=== PATIENT | female | born 1965 | race Two or more races ===

== ENCOUNTER 2025-05-18 09:44 | Outpatient (REF) | payer OTHER, SELFPAY ==
--- NOTE | 2025-05-18 09:51 | EMG_ITS ---
Chief complaint: At least 20 years of gradual progressive lower extremity weakness. Ten years ago, she started using a cane or a walker for ambulation. Now she is dependent for transfers and bed mobility, ambulates with lower extremity weakness, with walker. She denies lower back pain. Admits to some right hip pain. She denies numbness on lower extremities. Denies neck pain. Denies symptoms on upper extremities. She is not aware of family history on paternal side. She does have a maternal cousin who uses crutches for ambulation since childhood. No specific diagnosis has been given so far. Recent MRI lumbar spine did not report any significant disc herniation, spinal stenosis or nerve compression. EMG 2014 was normal, done at [facility]. On exam today, she has weakness on both lower extremities, 3/5 only. Hyperreflexia on both knees and ankles. No clonus. Negative Babinski. Increased tone on both legs. No hyperreflexia on upper extremities. No increased tone in upper extremities. Negative Conley's sign. 5/5 in upper extremities. No atrophy. No fasciculations seen. Reason for referral: Evaluate for neuropathy Referred by: Juan Carlos HICKS Procedure done: Bilateral lower extremity NCS/EMG order received Precautions and/or limitations: None The limb temperature was monitored continuously and remained between 32-36 degrees C during the performance of the NCS. Nerve Conduction Studies Anti Sensory Summary Table ?Stim Site NR Onset (ms) Norm Onset (ms) Peak (ms) Norm Peak (ms) O-P Amp (?V) Norm O-P Amp Site1 Site2 Delta-0 (ms) Dist (cm) Lennox (m/s) Norm Lennox (m/s) Left Sural Anti Sensory (Lat Mall) Calf ? 2.8 3.4 <4.0 16.9 >5.0 Calf Lat Mall 2.8 14.0 50 Right Sural Anti Sensory (Lat Mall) Calf ? 2.3 3.3 <4.0 19.2 >5.0 Calf Lat Mall 2.3 14.0 61 Motor Summary Table ?Stim Site NR Onset (ms) Norm Onset (ms) O-P Amp (mV) Norm O-P Amp iAmp (mV) Amp (1st) (%) Site1 Site2 Delta-0 (ms) Dist (cm) Lennox (m/s) Norm Lennox (m/s) Left Peroneal Motor (Ext Dig Brev) Ankle ? 3.8 <4.0 4.9 >2.5 5.8 100.0 Ankle Ext Dig Brev 3.8 0.0 B Fib ? 9.8 4.5 5.3 91.8 B Fib Ankle 6.0 32.5 54 >40 Poplt ? 10.6 4.5 5.3 91.8 Poplt B Fib 0.8 5.0 63 >40 Right Peroneal Motor (Ext Dig Brev) Ankle NR <4.0 >2.5 Ankle Ext Dig Brev 0.0 B Fib NR B Fib Ankle 0.0 >40 Poplt ? 10.6 3.7 4.1 Poplt B Fib 0.0 >40 Right Peroneal TA Motor (Tib Ant) Fib Head ? 4.2 <4.2 4.5 5.7 100.0 Fib Head Tib Ant 4.2 0.0 Poplit ? 5.4 <5.7 4.8 5.9 106.7 Poplit Fib Head 1.2 8.0 67 >40.5 Left Tibial Motor (Abd Castro Brev) Ankle ? 4.0 <5 8.0 >2.5 10.7 100.0 Ankle Abd Castro Brev 4.0 0.0 Knee ? 11.1 14.2 19.0 177.5 Knee Ankle 7.1 34.0 48 >40 Right Tibial Motor (Abd Castro Brev) Ankle ? 3.5 <5 8.9 >2.5 12.3 100.0 Ankle Abd Castro Brev 3.5 0.0 Knee ? 10.7 12.4 16.4 139.3 Knee Ankle 7.2 38.0 53 >40 EMG ?Side Muscle Nerve Root Ins Act Fibs Psw Amp Dur Poly Recrt Int Pat Comment Right AbdHallucis MedPlantar S1-2 Incr 2+ 2+ Nml Nml 0 Nml Complete Right AntTibialis Dp Br Peron L4-5 Nml Nml Nml Nml Nml 0 Nml Complete CAN NOT ACTIVATE Right PostTibialis Tibial L5, S1 Nml Nml Nml Nml Nml 0 Nml Complete Right MedGastroc Tibial S1-2 Incr 2+ 2+ Nml Nml 0 Nml Complete Right VastusMed Femoral L2-4 Nml Nml Nml Nml Nml 0 Nml Complete Left AbdHallucis MedPlantar S1-2 Incr 1+ 1+ Nml Nml 0 Nml Complete Left AntTibialis Dp Br Peron L4-5 Incr 1+ 1+ Nml Nml 0 Nml Complete CAN NOT ACTIVATE Left PostTibialis Tibial L5, S1 Nml Nml Nml Nml Nml 0 Nml Complete Left MedGastroc Tibial S1-2 Incr 1+ 1+ Nml Nml 0 Nml Complete Left VastusMed Femoral L2-4 Nml Nml Nml Nml Nml 0 Nml Complete Paraspinal EMG ?Side Muscle Nerve Root Ins Act Fibs Psw Comment Right Lumbar Upper Rami Nml Nml Nml Right Lumbar Mid Rami Nml Nml Nml Right Lumbar Lower Rami Nml Nml Nml Left Lumbar Upper Rami Nml Nml Nml Left Lumbar Mid Rami Incr 1+ 1+ Left Lumbar Lower Rami Nml Nml Nml FINDINGS: Right peroneal nerve, when recording at EDB muscle, showed absent distal responses. Right peroneal nerve, when recording at TA muscle, did not show conduction block across the fibula. All other nerves tested were within normal. No significant demyelination seen. Concentric needle EMG was performed in selected muscles of the bilateral lower extremity and lumbar paraspinals. Study revealed signs of electric abnormalities as shown in the table above. Right medial gastrocnemius and AH showed increased insertional activity, +2 PSWs and fibrillations. Left medial gastrocnemius, tibialis anterior and AH showed increased insertional activity, PSWs and fibrillations. Left mid lumbar paraspinals showed increased insertional activity, PSWs and fibrillations. No myopathic looking units. No fasciculations seen. IMPRESSION: 1. This is an abnormal study. 2. Electrodiagnostic findings suggestive of a disorder of motor neurons, their axons, or both, affecting the lower extremities. CLINICAL COMMENT: Patient is presenting with chronic, slowly progressive, lower extremity weakness, exhibiting mostly upper motor neuron signs (weakness, hyperreflexia, spasticity). No lower motor neuron signs seen such as atrophy. Electrodiagnostic findings as above show primarily an axonal and motor deficit. Does not show demyelinating process or conduction block. Sensory nerves were normal. Differential diagnosis would include, but not limited to primary lateral sclerosis. PLS is a rare disorder marked by progressive and selective UMN involvement with sparing of the LMNs, characterized by spasticity, weakness, increased reflexes, progressive paraplegia or quadriplegia. PLS has overall better prognosis than ALS. I would recommend sending patient back for further NCS/EMG of upper extremities, thoracic and bulbar muscles. We can call patient back to schedule. Consider referral to neurology. Rule out other PLS mimics. Another differential diagnosis is cervical or lumbar spinal stenosis. Recent lumbar MRI did not report any significant lumbar spinal stenosis. Would defer to referring coordinate measuring machine operator whether cervical MRI/imaging is to be done. Thank you for your kind referral. Sandee Laughlin MD, BONITA Board Certified, [place] [employer] and [employer] (ABPMR) Board Certified, [place] [employer] Electro[employer] (ABEM) CODIN 92021 x 2 MTDD
--- OUTSIDE RECORDS SUMMARY | 2025-05-18 10:11 | XMS_ITS | Clinical Summary ---
Author Organization [facility] Address [address] [place] [address] Phone Care Team Providers Care Flight Teacher Name Role Phone Hussain Ireland MD Primary Care Pr ovider Allergies No known active allergies Medications multivit,calc,mins /iron/folic (ONE-A-DAY WOMENS FORMULA ORAL) Active diclofenac (VOLTAREN) 1 % topical gel Apply 2 g topically 2 (two) times a day if needed (pain). 100 g 09/08/20 24 Active loperamide (Imodium A-D) 2 mg tablet Take 1 tablet (2 mg total) by mouth 3 (three) times a day if needed for diarrhea. 30 tablet 2 09/08/20 24 Active atorvastatin (LIPITOR) 20 mg tabletIndications: Mixed hyperlipidemia Take 1 tablet (20 mg total) by mouth at bedtime. 90 tablet 1 01/14/20 25 Active omeprazole (PriLOSEC) [address] capsuleIndications :Gastroesophageal reflux disease without esophagitis Take 1 capsule (20 mg total) by mouth 1 (one) time each day. Do not crush or chew. 90 each 1 03/09/20 25 025 Active gabapentin (NEURONTIN) 300 mg capsuleIndications :Chronic midline low back pain with right-sided sciatica,Chronic right hip pain Take 1 capsule (300 mg total) by mouth at bedtime. 90 each 1 03/09/20 25 025 Active cyclobenzaprine (FLEXERIL) 5 mg tabletIndications: Chronic midline low back pain with right-sided sciatica,Chronic right hip pain Take 1 tablet (5 mg total) by mouth at bedtime as needed for muscle spasms. 30 tablet 05/06/20 25 025 Active cyclobenzaprine (FLEXERIL) 5 mg tabletIndications: Chronic midline low back pain with right-sided sciatica,Chronic right hip pain Take 1 tablet (5 mg total) by mouth at bedtime as needed for muscle spasms. 30 tablet 03/09/20 25 025 Discontin ued(Reord er) Active Problems Problem Noted Date Diagnosed Date Osteoarthritis of spine with radiculopathy, lumb ar region 03/10/2025 Anterolisthesis of lumbosacral spine 03/10/2025 Gastroesophageal reflux disease without esophagi tis 03/09/2025 Assessment & Plan (03/09/2025 10:14 AM EDT): Start omeprazole daily. She will stop medication 2 weeks prior to H. pylori test of cure Orders: omeprazole (PriLOSEC) [address] capsule; Take 1 capsule (20 mg total) by mouth 1 (one) time each day. Do not crush or chew. Helicobacter pylori gastritis 01/14/2025 Assessment & Plan (03/09/2025 10:14 AM EDT): Status post treatment with amoxicillin/clindamycin/omeprazole. Still with acid reflux symptoms. She will return for H. pylori test of cure in April. Tendonitis of long head of biceps brachii of rig ht shoulder 08/20/2024 Assessment & Plan (08/20/2024 10:06 AM EST): Referred to Dr. Moreno for further evaluation Mixed hyperlipidemia 06/29/2024 Overview (09/02/2024): Calculated ASCVD risk is 3.3% Assessment & Plan (03/09/2025 10:14 AM EDT): Continue atorvastatin 20 mg nightly Assessment & Plan (01/13/2025 1:11 PM EDT): Advised to use atorvastatin 20 mg nightly and to use the medication every single night as prescribed. She will return for repeat fasting labs in 3 months Orders: Lipid panel with reflex to direct LDL; Future Comprehensive metabolic panel; Future atorvastatin (LIPITOR) 20 mg tablet; Take 1 tablet (20 mg total) by mouth at bedtime. Overweight (BMI 25.0-29.9) 06/29/2024 Primary osteoarthritis of right shoulder 024 Assessment & Plan (01/13/2025 1:11 PM EDT): See HPI Will trial ibuprofen 800 mg as needed. Advised to use the medication with food. Follow-up with sports medicine Orders: Ambulatory referral to Sports Medicine; Future ibuprofen (ADVIL,MOTRIN) 800 mg tablet; Take 1 tablet (800 mg total) by mouth 1 (one) time each day if needed for moderate pain (take with food). Leg length discrepancy 05/13/2018 Multiple thyroid nodules 12/16/2016 Overview (07/27/2024): 07/16/24 THYROID, ISTHMUS-FINE NEEDLE ASPIRATE (DIRECT SMEARS, THINPREP): - BENIGN (BETHESDA CATEGORY II). - BENIGN-APPEARING FOLLICULAR CELLS, COLLOID, AND OCCASIONAL ONCOCYTIC CELLS, CONSISTENT WITH A BENIGN FOLLICULAR NODULE. Gait instability 08/21/2015 Overview (07/27/2024): Being evaluated by [facility] neurology Encounters Date Type Department Care Team Description 04/12/2025 5:51 PM EDT - 04/12/2025 11:59 PM EDT Hospital Encounter Radiology Department - [address] [phone] Low back pain, unspecified; Foot drop, left foot; Foot drop, right foot; Muscular dystrophy, unspecified (CMS/HCC V24, CMS/HCC V28) Discharge Disposition: Home or Self Care 03/11/2025 10:30 AM EDT Office Visit [facility] [address] [place] [address] [address] [place] [address] Yue Moreno MD Chronic right shoulder pain (Primary Dx) 03/09/2025 10:20 AM EDT - 03/09/2025 11:59 PM EDT Hospital Encounter [facility] [address] [place], [place] [phone] Chronic midline low back pain with right-sided sciatica Discharge Disposition: Home or Self Care 03/09/2025 9:45 AM EDT Office Visit Adult Medicine [facility] [address] [place], [place] [phone] Hussain Ireland MD Mixed hyperlipidemia (Primary Dx); Helicobacter pylori gastritis; Gastroesophageal reflux disease without esophagitis; Cervical cancer screening; Chronic midline low back pain with right-sided sciatica; Chronic right hip pain from Last 3 Months Immunizations Name Administration Dates Next Due Influenza Quadravalent, MDCK , 0.5ml, preservative free (Flucelvax) 6mo and older 07/03/2021,08/25/2018 Influenza Quadravalent, MDCK , 0.5ml, with preservative (Flucelvax) 6mo and older 06/20/2020,08/23/2019,07/06/2017 Influenza Quadrivalent, 0.5m l, preservative free (Fluarix; FluLaval; Fluzone) ages 6mo and older (Afluria) 3yo and older 06/20/2020 Influenza Quadrivalent, with preservative (Fluzone; Afluria) 6mo and older 08/23/2019 Influenza trivalent, 0.5mL ( Fluad) 65yo and older 07/28/2016,07/05/2015,07/01/2013,2010,08/07/2010 Influenza trivalent, 0.5mL, preservative free (Fluarix; FluLaval; Fluzone) ages 6mo and older (Afluria) 3 years and older 06/29/2024,07/08/2008 Influenza trivalent, with preservative (Fluzone; Afluria) 6mo and older 06/29/2024,07/28/2016,07/05/2015,2012,08/14/2011,08/07/2010,07/08/2008 Pfizer SARS-CoV-2 COVID-19, mRNA, LNP-S, preservative free 02/24/2021,02/03/2021 Pneumococcal conjugate 20 va lent (Prevnar 20, PCV 20) 2mo and older 01/13/2025 Tdap Tetanus diptheria acell ular pertussis (Boostrix; Adacel) 7yo and older 06/20/2020,05/07/2010 Zoster recombinant (Shingrix ) 19yo and older 06/20/2020 Surgical History Surgery Date Site/Laterality Comments TUBAL LIGATION 09/09/2011 PROCEDURE: HISTORICAL TUBAL LIGATION; COMMENT: laparoscopic fallope rings COLONOSCOPY december 2016 PROCEDURE: HISTORICAL COLONOSCOPY; COMMENT: polyp Medical History Medical History Date Comments Multiple thyroid nodules 12/16/2016 DX:Mult iple thyroid nodules Leg length discrepancy 05/13/2018 DX:Leg le ngth discrepancy Gait instability 08/21/2015 DX:Gait instabi lity; COMMENT: Being evaluated by [facility] neurology Family History Medical History Relation Name Comments Other: cancer other Aunt brain Other cancer Maternal Grandmother unknown type Depression Mother Diabetes Mother Other: Ca Ovary Other negative his tory Breast cancer Neg Hx Colon cancer Neg Hx Relation Name Status Comments Aunt Brother 1 Alive Brother 2 Alive Father Other unknown health Maternal Grandmother Mother Alive dm, depression Other Social History Tobacco Use Types Packs/Day Years Used Date Smoking Tobacco: Never Smokeless Tobacco: Never Tobacco Cessation:Counseling Given: Not Answered Alcohol Use Standard Drinks/Week Comments No 0 (1 standard drink = 0.6 oz pur e alcohol) Comments No Sex and Gender Information Value Date Recorded Sex Assigned at Not on file Legal Sex Female 3:14 PM EST Gender Identity Not on file Sexual Orientation Not on file Obstetrics History Last Filed Vital Signs Vital Sign Reading Time Taken Comments Blood Pressure 125/86 03/09/2025 9:42 AM EDT Pulse 99 03/09/2025 9:42 AM EDT Temperature 36.9 C (98.5 F) 03/09/2025 9:42 AM EDT Respiratory Rate 17 03/09/2025 9:42 AM EDT Oxygen Saturation 96% 09/08/2024 7:57 AM EST Inhaled Oxygen Concentration - - Weight 74.8 kg (165 lb) 03/11/2025 10:31 AM EDT Height 160 cm (5' 2.99 ) 03/11/2025 10:31 AM EDT Body Mass Index 29.24 03/11/2025 10:31 AM EDT Plan of Treatment Upcoming Encounters Date Type Department Care Team (Late st Contact Info) Description 09/13/2025 10:00 AM EST Office Visit Adult [address] [phone] Moraima Givens PA [address] [place] [address] Health Maintenance Due Date Last Done Comments Cervical Cancer Screening: Pap Smear 08/15/2018 08/15/2015, 08/15/2015 Zoster Vaccines (2 of 2) 08/15/2020 06/20/2020 HIV Screening 09/21/2022 Social Influencers of Health Screening 09/21/2022 COVID-19 Vaccine ( season) 2024 10/23/2021, 02/24/2021, 02/03/2021 Depression Screening 10/13/2024 Influenza Vaccine (#1) 2025 , 06/29/2024, 07/03/2021, Additional history exists Breast Cancer Screening 07/06/2026 07/06/20 24, 07/06/2024, 07/08/2019, Additional history exists Colorectal Cancer Screening: Colonoscopy 08/03/2029 08/03/2024, 01/08/2017 Cholesterol Screening (Lipid Panel) 09/01/2029 09/01/2024, 09/19/2018 DTaP,Tdap,and Td Vaccines (3 - Td or Tdap) 06/20/2030 06/20/2020, 05/07/2010 Hepatitis C Screening Completed 07/05/2015 Pneumococcal Vaccine: 50+ Years Completed 01/13/2025 HIB Vaccines Aged Out No longer eligi ble based on patient's age to complete this topic HPV Vaccines Aged Out No longer eligi ble based on patient's age to complete this topic Hepatitis A Vaccines Aged Out No long er eligible based on patient's age to complete this topic Hepatitis B Vaccines Discontinued IPV Vaccines Aged Out No longer eligi ble based on patient's age to complete this topic MMR Vaccines Aged Out No longer eligi ble based on patient's age to complete this topic Meningococcal ACWY Vaccine Aged Out N o longer eligible based on patient's age to complete this topic Meningococcal B Vaccine Aged Out No l onger eligible based on patient's age to complete this topic RSV Immunization Patients Under 20 months Aged Out No longer eligible based on patient's age to complete this topic Varicella Vaccines Aged Out No longer eligible based on patient's age to complete this topic Procedures Procedure Name Priority Date/Time Associated Diagnosis Comments MR LUMBAR SPINE WO CONTRAST Routine 04/12/2025 6:28 PM EDT Low back pain, unspecified Foot drop, left foot Foot drop, right foot Muscular dystrophy, unspecified (CMS/HCC V24, CMS/HCC V28) XR LUMBAR SPINE 4+ VIEWS Routine 03/09/2025 10:35 AM EDT Chronic midline low back pain with right-sided sciatica LIPID PANEL WITH REFLEX TO DIRECT LDL Routine 09/01/2024 8:57 AM EST Mixed hyperlipidemia Multiple thyroid nodules SCREENING MAMMOGRAPHY BI 2-VIEW BREAST INC CAD Routine 07/06/2024 10:06 AM EDT Encounter for screening mammogram for malignant neoplasm of breast COLONOSCOPY Routine 01/08/2017 HPV Routine 08/15/2015 HEPATITIS C SCREENING Routine 07/05/2015 from Last 3 Months or Most Recently Relevant to Health Maintenance Results * MR Lumbar Spine wo Contrast (04/12/2025 6:28 PM EDT) Anatomical Region Laterality Modality L-spine, Spine Magnetic Resonan ce 04/13/2025 12:3 4 PM EDT Impressions 04/13/2025 7:52 PM EDT Diffuse degenerative changes. No evidence of nerve root impingement or high- grade spinal canal stenosis. POS - [id number] -------- FINAL REPORT -------- Dictated By: Madeline Piedra Dictated Date: 04/13/2025 12:34 ET Assigned Physician: Madeline Piedra Reviewed and Electronically Signed By: Madeline Piedra Signed Date: 04/13/2025 19:52 ET Workstation ID: [id number] Transcribed By: Self Edit Transcribed Date: 04/13/2025 13:07 ET Narrative 04/13/2025 7:52 PM EDT EXAM: Lumbar spine MRI HISTORY: Right-sided low back pain. Foot drop. COMPARISON: None CORRELATION: Lumbar spine radiography 03/01/2025 TECHNIQUE: Exam performed on a 1.5 Kelsey high-field MRI scanner. Multiplanar imaging performed without contrast. FINDINGS: Conus medullaris terminates at T12-L1 which is within normal limits. No abnormal cord signal detected. Vertebral body heights are maintained. Scattered small rounded areas of T1 hyperintensity in the bone marrow could represent marrow heterogeneity and/or hemangiomas. T12-L1: No significant disc bulging or evidence of a disc protrusion or extrusion. Bilateral facet arthropathy. No significant neural foraminal narrowing or spinal canal stenosis. L1-L2: Disc bulging. Mild facet arthropathy. Hypertrophy of the ligamentum flavum. No significant neural foraminal narrowing or spinal canal stenosis. L2-L3: Mild loss of disc height and disc bulging. Moderate facet arthropathy on the right and milder on the left. Hypertrophy of the ligamentum flavum. No significant neural foraminal narrowing or spinal canal stenosis. L3-L4: Mild loss of disc height and disc bulging. Mild to moderate bilateral facet arthropathy. Hypertrophy of the ligamentum flavum. No significant neural foraminal narrowing or spinal canal stenosis. L4-L5: 5 mm anterolisthesis of L4 on L5 with resultant uncovering of the intervertebral disc. Diffuse disc bulging with a possible superimposed small central disc protrusion. Severe bilateral facet arthropathy. Hypertrophy of the ligamentum flavum. Mild bilateral neural foraminal narrowing. Mild to moderate narrowing of the spinal canal. L5-S1: No significant disc bulging or evidence of a disc protrusion or extrusion. Severe bilateral facet arthropathy, right greater than left. No significant neural foraminal narrowing or spinal canal stenosis. Procedure Note Madeline Piedra MD - 04/13/2025 EXAM: Lumbar spine MRI HISTORY: Right-sided low back pain. Foot drop. COMPARISON: None CORRELATION: Lumbar spine radiography 03/01/2025 TECHNIQUE: Exam performed on a 1.5 Kelsey high-field MRI scanner.Multiplanar imaging performed without contrast. FINDINGS: Conus medullaris terminates at T12-L1 which is within normal limits. Noabnormal cord signal detected. Vertebral body heights are maintained. Scattered small rounded areas of [id number] in the bone marrow could represent marrow heterogeneityand/or hemangiomas. T12-L1: No significant disc bulging or evidence of a disc protrusion orextrusion. Bilateral facet arthropathy. No significant neural foraminalnarrowing or spinal canal stenosis. L1-L2: Disc bulging. Mild facet arthropathy. Hypertrophy of the ligamentumflavum. No significant neural foraminal narrowing or spinal canalstenosis. L2-L3: Mild loss of disc height and disc bulging. Moderate facetarthropathy on the right and milder on the left. Hypertrophy of theligamentum flavum. No significant neural foraminal narrowing or spinalcanal stenosis. L3-L4: Mild loss of disc height and disc bulging. Mild to moderatebilateral facet arthropathy. Hypertrophy of the ligamentum flavum. Nosignificant neural foraminal narrowing or spinal canal stenosis. L4-L5: 5 mm anterolisthesis of L4 on L5 with resultant uncovering of theintervertebral disc. Diffuse disc bulging with a possible superimposedsmall central disc protrusion. Severe bilateral facet arthropathy.Hypertrophy of the ligamentum flavum. Mild bilateral neural foraminalnarrowing. Mild to moderate narrowing of the spinal canal. L5-S1: No significant disc bulging or evidence of a disc protrusion orextrusion. Severe bilateral facet arthropathy, right greater than left. Nosignificant neural foraminal narrowing or spinal canal stenosis. IMPRESSION: Diffuse degenerative changes. No evidence of nerve root impingement orhigh-grade spinal canal stenosis. POS - [id number] -------- FINAL REPORT -------- Dictated By: Madeline Piedra Dictated Date: 04/13/2025 12:34 ET Assigned Physician: Madeline Piedra Reviewed and Electronically Signed By: Madeline Piedra Signed Date: 04/13/2025 19:52 ET Workstation ID: [id number] Transcribed By: Self Edit Transcribed Date: 04/13/2025 13:07 ET Juan Carlos HICKS IMG MRI PROCEDURES Final Resul t * XR Lumbar Spine 4+ Views (03/09/2025 10:35 AM EDT) Anatomical Region Laterality Modality Spine, L-spine Radiographic Kristen ging 03/09/2025 1:08 PM EDT Impressions 03/09/2025 1:11 PM EDT Mild multilevel degenerative changes. Grade 1 anterolisthesis of L4 on L5. -------- FINAL REPORT -------- Dictated By: Geraldine Hall Dictated Date: 03/09/2025 13:08 ET Assigned Physician: Geraldine Hall Reviewed and Electronically Signed By: Geraldine Hall Signed Date: 03/09/2025 13:11 ET Workstation ID: [id number] Transcribed By: Self Edit Transcribed Date: 03/09/2025 13:08 ET Narrative 03/09/2025 1:11 PM EDT XR LUMBAR SPINE 4 VIEWS Reason: back pain Comparison: None FINDINGS: Grade 1 anterolisthesis of L4 on L5. No compression fracture. Mild disc space narrowing at L4-L5. Small marginal osteophytes at a few levels. Facet arthropathy is more prominent on the right side at L4-L5 and L5-S1. Sacroiliac joints are intact. Procedure Note Geraldine Hall MD - 03/09/2025 XR LUMBAR SPINE 4 VIEWS Reason: back pain Comparison: None FINDINGS: Grade 1 anterolisthesis of L4 on L5. No compression fracture. Mild discspace narrowing at L4-L5. Small marginal osteophytes at a few levels.Facet arthropathy is more prominent on the right side at L4-L5 and L5-S1.Sacroiliac joints are intact. IMPRESSION: Mild multilevel degenerative changes. Grade 1 anterolisthesis of L4 onL5. -------- FINAL REPORT -------- Dictated By: Geraldine Hall Dictated Date: 03/09/2025 13:08 ET Assigned Physician: Geraldine Hall Reviewed and Electronically Signed By: Geraldine Hall Signed Date: 03/09/2025 13:11 ET Workstation ID: [id number] Transcribed By: Self Edit Transcribed Date: 03/09/2025 13:08 ET us Hussain Ireland MD IMG XR PROCEDURE S Final Result * (ABNORMAL) Lipid panel with reflex to direct LDL (09/01/2024 8:57 AM EST) Cholesterol 243(H) 0 - 200 mg/dL LAB CHEMISTRY METHOD 09/01/2024 12:41 PM EST [facility] Triglycerides 157(H) 0 - 150 mg/dL LAB CHEMISTRY METHOD 09/01/2024 12:41 PM EST [facility] HDL 50 >=40 mg/dL LAB CHEMISTRY METHOD 09/01/2024 12:41 PM EST [facility] LDL Calculated 162(H) 0 - 100 mg/dL LAB CHEMISTRY METHOD 09/01/2024 12:41 PM EST [facility] VLDL Cholesterol Wong 31.4 mg/dL LAB CHEMISTRY METHOD 09/01/2024 12:41 PM EST [facility] Non HDL Chol. (LDL+VLDL) 193(H) <145 mg/dL LAB CHEMISTRY METHOD 09/01/2024 12:41 PM EST [facility] Chol/HDL Ratio 4.9(H) 0.0 - 4.4 LAB CHEMISTRY METHOD 09/01/2024 12:41 PM [facility] Blood Venous blood specimen / Unknown Venipuncture / Unknown 09/01/2024 8:57 AM EST 09/01/2024 8:57 AM EST us Hussain Ireland MD LAB BLOOD ORDERA BLES Final Result [facility] [address] [place] [address], * SCREENING MAMMOGRAPHY BI 2-VIEW BREAST INC CAD (07/06/2024 10:06 AM EDT) Anatomical Region Laterality Modality Radiographic Kristen ging 06/29/2024 9:06 AM EDT Narrative 07/06/2024 4:54 PM EDT This is a summary report. The complete report is available in the patient's medical record. If you cannot access the medical record, please contact the sending organization for a detailed fax or copy. Full field digital screening tomosynthesis mammography, reviewed with CAD and compared to previous. The breast tissue is heterogeneously dense, limiting sensitivity. No suspicious mass, architectural distortion or suspicious calcifications are identified. IMPRESSION: : Dense breast tissue, limiting the sensitivity of mammography. No mammographic evidence of malignancy. BIRADS 1-Negative; N. Breast density: The breasts are heterogeneously dense, which may obscure small masses. 5 year breast cancer risk assessment 0.8 % Lifetime breast cancer risk assessment 4.9 % Breast cancer risk category Low (<15%) Location: [facility], [address] [place] [address], [address], [phone] Procedure Note Nica Becerra MD - 09/06/2024 This is a summary report. The complete report is available in thepatient's medical record. If you cannot access the medical record, pleasecontact the sending organization for a detailed fax or copy. Full field digital screening tomosynthesis mammography, reviewed with CADand compared to previous. The breast tissue is heterogeneously dense,limiting sensitivity. No suspicious mass, architectural distortion orsuspicious calcifications are identified. IMPRESSION: : Dense breast tissue, limiting the sensitivity of mammography. Nomammographic evidence of malignancy. BIRADS 1-Negative; N. Breast density: The breasts are heterogeneously dense, which may obscuresmall masses. 5 year breast cancer risk assessment 0.8 % Lifetime breast cancer risk assessment 4.9 % Breast cancer risk category Low (<15%) Location: [facility], [address] [place] [address], [address], [phone] Hussain Ireland MD IMG XR PROCEDURE S Final Result * Colonoscopy (01/08/2017) Pathologist [facility] Colonoscopy No Interpretation , Abstracted Anatomical Region Laterality Modality Other [facility] Provider HEALTH MAINTENANCE Final Result * Cervical Cancer Screening: HPV (08/15/2015) [facility] Cervical Cancer Screening: HPV Negative, Abstracted Historical Provider HEALTH MAINTENANCE Final Result * Hepatitis C Screening (07/05/2015) [facility] Hepatitis C Screening Abstracted [facility] Provider HEALTH MAINTENANCE Final Result from Last 3 Months or Most Recently Relevant to Health Maintenance Insurance [employer] Care Teams Flight Teacher Relationship Specialty Start Date End Date Hussain Ireland MD [address] [place] [id number] PCP - General 10/17/22
== END 2025-05-18 09:45 | disposition home or self-care (01) ==
LOC: HO.NEURO 09:44
PROVIDERS: PCP Family Medicine; Visit Provider Physician Assistant
DX: M54.50 Low back pain, unspecified (principal); M21.372 Foot drop, left foot
CPT/HCPCS: 95886; 95909

== ENCOUNTER → 2025-05-18 09:51 | Outpatient (BNV) | payer OTHER, SELFPAY | PROVIDERS: PCP Family Medicine; Visit Provider Physical Medicine & Rehabilitation | DX: R53.1 Weakness (principal) | CPT/HCPCS: 95886; 95909 ==